=== PATIENT | male | born 1970 ===

== ENCOUNTER 2018-05-04 21:16 | Emergency (ER) | payer OTHER ==
[2018-05-04 21:19] VITALS: BMI 26.6
[2018-05-04] MEDS ORDERED: Sodium Chloride 0.9% 1,000 ML IV STA ×2 (21:19→22:34)
[2018-05-04 21:36] VITALS: BP 120/64; TEMP 99.7
[2018-05-04 21:50] LABS: BASO % 0.2 % (0.0-2.0); EOS % 0.1 % (0.0-4.0); HEMOGLOBIN 14.4 g/dL (12.0-18.0); LYMPH # 3.3 K/uL (1.0-4.3); LYMPH % 16.2 % (20.0-40.0); MEAN CELL VOLUME 91.1 fl (80.0-94.0); MEAN CORPUSCULAR HEMOGLOBIN 30.5 pg (27.0-31.0); MEAN CORPUSCULAR HGB CONC 33.5 g/dL (33.0-37.0); MEAN PLATELET VOLUME 8.5 fl (7.2-11.7); MONO # 2.1 K/uL (0.0-0.8); MONO % 10.3 % (0.0-10.0); NEUT # 15.1 K/uL (1.8-7.0); NEUT % 73.2 % (50.0-75.0); RBC 4.73 Mil/uL (4.40-5.90); RED CELL DISTRIBUTION WIDTH 12.7 % (11.5-14.5); WHITE BLOOD COUNT 20.7 K/uL (4.8-10.8)
[2018-05-04 21:55] LABS: INR 1.2; PROTHROMBIN TIME 12.9 Seconds (9.8-13.1)
[2018-05-04 21:57] LABS: PARTIAL THROMBOPLASTIN TIME 28.4 Seconds (25.6-37.1)
[2018-05-04 22:03] LABS: ALB/GLOB RATIO 1.4 (1.0-2.1); ALBUMIN 4.9 g/dL (3.5-5.0); ALT/SGPT 43 U/L (21-72); AST/SGOT 38 U/L (17-59); BLOOD UREA NITROGEN 22 mg/dl (9-20); CALCIUM 10.1 mg/dL (8.4-10.2); GFR NON-AFRICAN AMERICAN 47
--- NOTE | 2018-05-04 22:38 | ED PDOC ---
Syncope/Near Syncope/Dizziness Time Seen by Provider: 05/04/18 21:17 Chief Complaint (Nursing): Syncope Chief Complaint (Provider): Syncope History Per: Patient History/Exam Limitations: no limitations Onset/Duration Of Symptoms: Mins Current Symptoms Are (Timing): Still Present Additional Complaint(s): 47 year old male presents to the ED complaining of syncope. 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 Patient was working in the boiler room when he had a syncopal event. Temperature was 140 degrees which was recorded by the nursing supervisor slitting and shipping. This provider and Marjorie Mantilla responded to the [employer]. Patient was lying on his belly and breathing normally but not responding. Patient was placed on a stretcher and brought to the ED for further care. History is unclear due to unclear history. Accompanying personnel indicate he fell but he eased patient to the ground. He is uncertain if he hit his head when falling. PMD: none provided Past Medical History Reviewed: Historical Data, Nursing Documentation, Vital Signs, Unable To Obtain Vital Signs: Last Vital Signs Temp 99.7 F H 05/04/18 21:26 Pulse 120 H 05/04/18 21:26 Resp 18 05/04/18 21:26 BP 120/64 05/04/18 21:26 Pulse Ox 96 05/04/18 21:26 - Family History Family History: States: Unknown Family Hx - Allergies Allergies/Adverse Reactions: Allergies Allergy/AdvReac Type Severity Reaction Status Date / Time Unobtainable Allergy Verified 05/04/18 21:18 Review of Systems Review Of Systems: ROS cannot be obtained secondary to pt's inabilty to answer questions. Physical Exam - Reviewed Nursing Documentation Reviewed: Yes Vital Signs Reviewed: Yes - Physical Exam Appears: Positive for: Non-toxic, No Acute Distress Head Exam: Positive for: ATRAUMATIC, NORMOCEPHALIC Skin: Positive for: Normal Color, Warm, Dry, Diaphoresis Eye Exam: Positive for: Normal appearance ENT: Positive for: Other (Dry mucous membranes) Neck: Positive for: Normal, Painless ROM Cardiovascular/Chest: Positive for: Regular Rate, Rhythm, Tachycardia Respiratory: Positive for: Normal Breath Sounds. Negative for: Wheezing, Respiratory Distress Extremity: Positive for: Normal ROM Neurologic/Psych: Positive for: Alert, Oriented. Negative for: Motor/Sensory Deficits - Laboratory Results Result Diagrams: 05/04/18 21:45 05/04/18 21:45 - ECG O2 Sat by Pulse Oximetry: 96 (RA) Pulse Ox Interpretation: Normal - Critical Care Total Time (In Min): 30 Documented Critical Care: Time excludes all time spent performint seperately billable procedures Medical Decision Making Medical Decision Making: Initial Impression: 47 y/o male with syncopal event insetting of heat exposure Initial Plan: --CT cervical spine --CT head --ECG --Alcohol serum --CMP --Creatine phosphokinase --Drug screen --Lact acid --Magnesium --Troponin --ED urine dipstick --CBC --PTT --Prothrombin --Sodium chloride CT Head: FINDINGS: Brain: 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 Ventricles: Unremarkable. Bones/joints: Unremarkable. No acute fracture. Soft tissues: Unremarkable. Sinuses: Unremarkable as visualized. Mastoid air cells: Unremarkable as visualized. IMPRESSION: No acute findings. CT Cervical Spine: FINDINGS: Vertebrae: Unremarkable. No acute fracture. Discs/spinal canal/neural foramina: No acute findings. Soft tissues: Unremarkable. Lung apices: Unremarkable as visualized. IMPRESSION: No acute cervical spine pathology or traumatic injury. 23:45 LS Spine X-ray shows no acute findings or dislocation. Patient reports marketed improvement in symptoms and is alert, awake, and oriented x3 in the ED. He is requesting to be discharged. Upon provider evaluation, patient is medically stable and ready for discharge home. Patient encouraged to follow up with PMD and given return precautions. Scribe Attestation: Documented by Surendra Buckley acting as a scribe for Earl Aguilera MD. Provider Scribe Attestation: All medical record entries made by the Scribe were at my direction and personally dictated by me. I have reviewed the chart and agree that the record accurately reflects my personal performance of the history, physical exam, medical decision making, and the department course for this patient. I have also personally directed, reviewed, and agree with the discharge instructions and disposition. Disposition - Clinical Impression Clinical Impression: Heat syncope, Dehydration - Patient ED Disposition Is Patient to be Admitted: No - Disposition Disposition: Routine/Home Disposition Time: 23:50 Condition: IMPROVED Instructions: Dehydration, Adult (DC), Heat Exhaustion and Heat Stroke (DC) Forms: [facility] (Faroese) Print Language: ANDORRAN
[2018-05-05 01:15] VITALS: PULSE 93; RESP 17
[2018-05-05 02:11] VITALS: O2SAT 96
--- NOTE | 2018-05-05 08:23 | CARD ---
APPROVED REPORT Date of service: 05/04/2018 <Conclusion> Sinus tachycardia Otherwise normal ECG
--- NOTE | 2018-05-05 09:14 | CT ---
Date of service: 05/04/2018 PROCEDURE: CT HEAD WITHOUT CONTRAST. HISTORY: headache COMPARISON: None available. TECHNIQUE: Axial computed tomography images were obtained through the head/brain without intravenous contrast. Radiation dose: Total exam DLP = 885 mGy-cm. This CT exam was performed using one or more of the following dose reduction techniques: Automated exposure control, adjustment of the mA and/or kV according to patient size, and/or use of iterative reconstruction technique. FINDINGS: HEMORRHAGE: No intracranial hemorrhage. BRAIN: No mass effect or edema. No significant appear atrophy coalescent chronic appearing lacunar infarcts left basal ganglia noted. . VENTRICLES: Unremarkable. No hydrocephalus. CALVARIUM: Unremarkable. PARANASAL SINUSES: Unremarkable as visualized. No significant inflammatory changes. MASTOID AIR CELLS: Unremarkable as visualized. No inflammatory changes. OTHER FINDINGS: None. IMPRESSION: . Coalescent chronic appearing lacunar infarcts left basal ganglia noted. No hemorrhage or mass effect. Concordant results (preliminary interpretation) provided by [facility].
--- NOTE | 2018-05-05 11:27 | CT ---
Date of service: 05/04/2018 PROCEDURE: CT Cervical Spine without contrast HISTORY: neck injury COMPARISON: [employer] below or dilatation was the last couple weeks because now when available. TECHNIQUE: Axial computed tomography images were obtained of the cervical spine without the use of intravenous contrast. Coronal and sagittal reformatted images were created and reviewed. Radiation dose: Total exam DLP = 413.17 mGy-cm. This CT exam was performed using one or more of the following dose reduction techniques: Automated exposure control, adjustment of the mA and/or kV according to patient size, and/or use of iterative reconstruction technique. FINDINGS: VERTEBRAE: No fracture. Normal alignment. No destructive bony lesion. DISCS/SPINAL CANAL/NEURAL FORAMINA: No significant central canal or neural foraminal stenosis. Discs heights are grossly preserved. PARASPINAL SOFT TISSUES: Unremarkable. OTHER FINDINGS: None. IMPRESSION: No acute findings related to/accounting for the clinical presentation. Concordant results (preliminary interpretation) provided by [facility]. Procedure Completed: 21:41 Preliminary ([facility]) Report: Dictated and Authenticated: 22:29 Final Interpretation: 11:29. May 05, 2018.
--- NOTE | 2018-05-05 13:27 | RAD ---
Date of service: 05/04/2018 PROCEDURE: Radiographs of the Lumbar Spine. HISTORY: Pain. No history of recent/ related trauma provided COMPARISON: No prior. FINDINGS: BONES: Normal alignment. No listhesis. No fracture. DISC SPACES: Unremarkable. OTHER FINDINGS: None. IMPRESSION: Unremarkable radiographs of the lumbar spine.
== END 2018-05-05 01:14 | disposition home or self-care (01) ==
LOC: H.ER 21:16
DX: R55 Syncope and collapse (principal); E86.0 Dehydration
CPT/HCPCS: 70450; 72114; 72125; 80053; 80320; 82550; 82948; 83605; 83735; 84484; 85025; 85610; 85730; 93005; 96360; 96374; 99285; J1885; J7030